=== PATIENT | male | born 1945 | race Caucasian/White ===

== ENCOUNTER 2021-12-27 10:45 | Outpatient (RCR) | payer MEDICARE, OTHER | END 2022-01-17 | disposition home or self-care (01) | LOC: ONC 10:45 | PROVIDERS: ATTEND Radiology Radiation Oncology | DX: C61 Malignant neoplasm of prostate (principal); E78.00 Pure hypercholesterolemia, unspecified; I10 Essential (primary) hypertension | CPT/HCPCS: 99205 ==

== ENCOUNTER 2022-02-21 05:36 | Outpatient (CLI) | payer MEDICARE, OTHER ==
[~2022-02-21] VITALS: Ht 165.1 cm; Wt 80.5 kg
[2022-02-22] MEDS ORDERED: CLOP-31 PO (08:32)
[2022-02-22] MEDS ORDERED: SIMV80TA21 PO (08:32)
[2022-02-22] MEDS ORDERED: LISI20TA26 PO (08:32)
[2022-02-22] MEDS ORDERED: MEMA10TA2 PO (08:32)
[2022-02-22] MEDS ORDERED: DONE10TA12 PO (08:32)
[2022-02-22] MEDS ORDERED: ASPI-999 PO (08:32)
== END 2022-02-26 16:10 | disposition home or self-care (01) ==
LOC: PREOP 05:36
PROVIDERS: ATTEND Specialist
DX: Z01.818 Encounter for other preprocedural examination (principal)

== ENCOUNTER 2022-02-28 10:50 | Day surgery (SDC) | payer MEDICARE, OTHER ==
[~2022-02-28] VITALS: Ht 165 cm; Wt 80.5 kg
[2022-02-28] VITALS (8 sets, daily range): BP systolic 103–158; BP diastolic 57–86
[~2022-02-28 10:50] MED LIST: ASPI-999 PO; CLOP-31 PO; DONE10TA12 PO; LISI20TA26 PO; MEMA10TA2 PO; SIMV80TA21 PO
[2022-02-28] MEDS ORDERED: LACTATED RINGERS 1,000 ML IV PRN (13:00)
--- NOTE | 2022-02-28 13:12 | Progress Note-Pre Operative ---
Pre-Operative Progress Note Date of Available H&P: Feb 20, 2022 Date H&P Reviewed: Feb 28, 2022 Time H&P Reviewed: 13:12 History & Physical: H&P Reviewed Changes from last HP see H&P addendum Pre-Operative Diagnosis: Prostate cancer cT1c, PSA 5, [place] 8 (4+4) Roxann EMERY MD Feb 28, 2022 13:12
--- NOTE | 2022-02-28 13:14 | Discharge Inst-Simple/Standard ---
Discharge Inst-Standard Reconcile Patient Problems Problems Reviewed?: Yes Discharge Medications New, Converted or Re-Newed RX: Other (patient has medication at home) Patient Instructions/Follow Up Plan of Care/Instructions/FU: 1)Treatment planning ct scan at [facility] cancer center 03/14/22 at 1:00 pm. Please drink 1/2 bottle of oral contrast 30 minutes prior to appt (12:30 pm) Activity as Tolerated: Yes Discharge Diet: No Restrictions Roxann EMERY MD Feb 28, 2022 13:14
[2022-02-28] MEDS ORDERED: ONDANSETRON 4 MG/2 ML (SDV) Z0FRAN ONE ×2 (14:06→14:11)
[2022-02-28] MEDS ORDERED: BACITRACIN OINTMENT 28 GM TUBE ONE (14:06)
[2022-02-28] MEDS ORDERED: proPOfol 200 MG/20 ML (DIPRIVAN) VIAL IV ONE (14:06)
[2022-02-28] MEDS ORDERED: fentaNYL INJ 100 MCG/2 ML AMP ONE (14:08)
[2022-02-28] MEDS ORDERED: SEVOFLURANE (ULTANE) 15 ML INHAL SOLN ONE (14:11)
--- NOTE | 2022-02-28 14:27 | Anesthesia-General Post-Op ---
General Patient Condition Mental Status/LOC: Same as Preop Cardiovascular: Satisfactory Nausea/Vomiting: Absent Respiratory: Satisfactory Pain: Controlled Complications: Absent Post Op Complications Complications None Follow Up Care/Instructions Patient Instructions None needed. Anesthesia/Patient Condition Patient Condition Patient is doing well, no complaints, stable vital signs, no apparent adverse anesthesia problems. No complications reported per nursing. SAMANTHA MCKINNEY CRNA Feb 28, 2022 14:27
[2022-02-28] MEDS ORDERED: fentaNYL INJ 100 MCG/2 ML AMP IVP ONE (14:30)
[2022-02-28] MEDS ORDERED: ONDANSETRON 4 MG/2 ML (SDV) Z0FRAN IVP PRN (14:30)
--- NOTE | 2022-02-28 14:40 | Progress Note-Post Operative ---
Post-Operative Progess Note Surgeon (s)/Construction Trench Digger (s) Surgeon Roxann EMERY MD Construction Trench Digger: N/A Pre-Operative Diagnosis Prostate cancer cT1c, PSA 5, [place] 8 (4+4) Post-Operative Diagnosis Same as pre-op Procedure & Operative Findings Date of Procedure 02/28/22 Procedure Performed/Findings (1) placement of fiducial gold seed markers (2) injection of biodegradable hydrogel prostate-rectal spacer utilizing the [employer] system Anesthesia Type General Estimated Blood Loss Estimated blood loss (mL): Minimal Specimens/Packing Specimens Removed N/A Packing: None Roxann EMERY MD Feb 28, 2022 14:40
== END 2022-02-28 15:34 | disposition home or self-care (01) ==
LOC: SDC 10:50
PROVIDERS: ATTEND Specialist
DX: C61 Malignant neoplasm of prostate (principal)
CPT/HCPCS: 55876; 87081; C1889

== ENCOUNTER 2022-03-14 12:32 | Outpatient (RCR) | payer MEDICARE, OTHER | END 2022-03-20 | disposition home or self-care (01) | LOC: ONC 12:32 | PROVIDERS: ATTEND Radiology Radiation Oncology | DX: Z51.0 Encounter for antineoplastic radiation therapy (principal); C61 Malignant neoplasm of prostate; E78.00 Pure hypercholesterolemia, unspecified; I10 Essential (primary) hypertension | CPT/HCPCS: 77300; 77301; 77334; 77338 ==

== ENCOUNTER → 2022-04-17 | Outpatient (RCR) | payer MEDICARE, OTHER | END | disposition home or self-care (01) | LOC: ONC 03-21 14:41 | PROVIDERS: ATTEND Radiology Radiation Oncology | DX: Z51.0 Encounter for antineoplastic radiation therapy (principal); C61 Malignant neoplasm of prostate; E78.00 Pure hypercholesterolemia, unspecified; I10 Essential (primary) hypertension | CPT/HCPCS: 77336; 77385 ==

== ENCOUNTER 2022-04-27 14:32 | Outpatient (RCR) | payer MEDICARE, OTHER | END 2022-05-18 | disposition home or self-care (01) | LOC: ONC 14:32 | PROVIDERS: ATTEND Radiology Radiation Oncology | DX: Z51.0 Encounter for antineoplastic radiation therapy (principal); C61 Malignant neoplasm of prostate; E78.00 Pure hypercholesterolemia, unspecified; I10 Essential (primary) hypertension | CPT/HCPCS: 77336; 77385 ==

== ENCOUNTER 2022-06-07 11:18 | Outpatient (RCR) | payer MEDICARE, OTHER | END 2022-06-17 | disposition home or self-care (01) | LOC: ONC 11:18 | PROVIDERS: ATTEND Radiology Radiation Oncology | DX: C61 Malignant neoplasm of prostate (principal); E78.00 Pure hypercholesterolemia, unspecified; I10 Essential (primary) hypertension | CPT/HCPCS: 84153; G0463; 36415; 99213 ==

== ENCOUNTER 2022-08-23 09:22 | Outpatient (RCR) | payer MEDICARE, OTHER | END 2022-09-17 | disposition home or self-care (01) | LOC: ONC 09:22 | PROVIDERS: ATTEND Radiology Radiation Oncology | DX: C61 Malignant neoplasm of prostate (principal); E78.00 Pure hypercholesterolemia, unspecified; I10 Essential (primary) hypertension | CPT/HCPCS: 84153; G0463; 36415; 99213 ==